=== PATIENT | female | born 1960 | race Asian ===

== ENCOUNTER 2023-11-10 14:59 | Emergency (ER) | payer OTHER ==
[~2023-11-10] VITALS: Ht 149.9 cm; Wt 68.0 kg
[2023-11-10 15:28] VITALS: BP 184/110
[2023-11-10] MEDS ORDERED: Diphth,Pertuss(Acell),Tet Vac 0.5 ML VIAL IM ONE (15:30)
[2023-11-10] MEDS ORDERED: IBUP400 PO (16:05)
== END 2023-11-10 16:19 | disposition home or self-care (01) ==
LOC: ER 14:59
DX: S90.511A Abrasion, right ankle, initial encounter (principal); S90.512A Abrasion, left ankle, initial encounter; S82.832A Other fracture of upper and lower end of left fibula, initial encounter for closed fracture; M25.561 Pain in right knee; V28.49XA Other motorcycle driver injured in noncollision transport accident in traffic accident, initial encounter
CPT/HCPCS: 73610; 90471; 90715; 99284-25

== ENCOUNTER 2024-03-15 16:56 | Emergency (ER) | payer OTHER ==
[~2024-03-15] VITALS: Ht 152.4 cm; Wt 72.6 kg
[~2024-03-15 16:56] MED LIST: IBUP400 PO
[2024-03-15 22:30] VITALS: BP 154/76
== END 2024-03-15 23:33 | disposition home or self-care (01) ==
LOC: ER 16:56
DX: I10 Essential (primary) hypertension (principal)
CPT/HCPCS: 99283

== ENCOUNTER → 2024-12-22 | Outpatient (CLI) | payer OTHER ==
[2024-12-23 15:24] LABS: Stool Occult Bld Immuno 1 Negative (NEGATIVE)
== END ==
LOC: LAB 14:00 → LAB SHORT 14:00
PROVIDERS: Nurse Practitioner Family
DX: Z12.11 Encounter for screening for malignant neoplasm of colon (principal)
CPT/HCPCS: G0328